=== PATIENT | male | born 1975 | race Caucasian/White ===

== ENCOUNTER 2018-05-05 13:52 | Emergency (ER) | payer OTHER ==
[~2018-05-05] VITALS: Ht 167.6 cm; Wt 104.3 kg
[2018-05-05 14:50] LABS: BASO # 0.1 x10^3/uL (0.0-0.2); BASO % 3 % (0-3); EOS # 0.2 x10^3/uL (0.0-0.7); EOS % 5 % (0-3); HEMATOCRIT 39.6 % (39.0-53.0); HEMOGLOBIN 14.2 g/dL (13.0-17.5); LYMPH # 1.5 x10^3/uL (1.0-4.8); LYMPH % 36 % (24-48); MEAN CORPUSCULAR HEMOGLOBIN 31 pg (25-35); MEAN CORPUSCULAR HGB CONC 36 g/dL (31-37); MEAN CORPUSCULAR VOLUME 85 fL (79-100); MONO # 0.6 x10^3/uL (0.0-1.1); MONO % 14 % (0-9); NEUT # 1.8 x10^3uL (1.8-7.7); NEUT % 42 % (31-73); PLATELET COUNT 193 x10^3/uL (140-400); RED BLOOD COUNT 4.64 x10^6/uL (4.30-5.70); RED CELL DISTRIBUTION WIDTH 13.1 % (11.5-14.5); WHITE BLOOD COUNT 4.2 x10^3/uL (4.0-11.0)
--- NOTE | 2018-05-05 14:56 | PHYS DOC ---
Past Medical History Past Medical History: Other Additional Past Medical Histor: PITUATARY GLAND TUMOR Past Surgical History: No Surgical History Additional Information: 1 PPD Alcohol Use: None Drug Use: None Adult General Chief Complaint Chief Complaint: HEADACHE HPI HPI Patient is a 42 year old male who presents with headache. Patient has been having a bitemporal frontal headache over the last 3 days. He states he has been having headaches over the last many weeks. He was recently evaluated in [place] and referred to an frame opener due to some complaints of vision loss. He primarily complains of vision loss on the peripheral vision bilaterally. The frame opener had concerns that the patient might have a pituitary tumor due to the vision loss. The patient was supposed to follow-up with a neurosurgeon and have MRI of his brain but states he encountered an insurance issue and was unable to follow-up. Today, he primarily complains of headache that has been worsening. He has no vision changes other than those mentioned. He has no nausea or vomiting. He has mild photophobia. He denies other focal neurologic complaints. Review of Systems Review of Systems Constitutional: Denies fever or chills Eyes: as documented above HENT: Denies nasal congestion Respiratory: Denies cough or shortness of breath Cardiovascular: No additional information not addressed in HPI GI: Denies abdominal pain : Denies dysuria or hematuria Musculoskeletal: Denies back pain or joint pain Integument: Denies rash Neurologic: Denies focal neuro complaints All other systems were reviewed and found to be within normal limits, except as documented in this note. Current Medications Current Medications Current Medications Medications (Trade) Dose Ordered Sig/Esha Start Time Stop Time Status Last Admin Dose Admin Ketorolac Tromethamine (Toradol 30mg Vial) 30 mg 1X ONCE 05/05/18 15:00 05/05/18 15:01 DC 05/05/18 14:44 30 MG Prochlorperazine Edisylate (Compazine) 10 mg 1X ONCE 05/05/18 15:00 05/05/18 15:01 DC 05/05/18 14:44 10 MG Allergies Allergies Allergies Coded Allergies Type Severity Reaction Last Updated Verified No Known Drug Allergies 05/05/18 No Physical Exam Physical Exam Constitutional: Well developed, well nourished, no acute distress, non-toxic appearance HENT: Normocephalic, atraumatic, bilateral external ears normal, oropharynx moist Eyes: PERRLA, EOMI, conjunctiva normal, no discharge Neck: Normal range of motion, no tenderness, supple Cardiovascular:Heart rate regular rhythm, no murmur Lungs & Thorax: Bilateral breath sounds clear to auscultation Abdomen: Bowel sounds normal, soft, no tenderness Skin: Warm, dry, no erythema, no rash Extremities: No tenderness, no edema Neurologic: Alert and oriented X 3, cranial nerves II through XII are intact bilaterally. Patient does have bitemporal loss of some peripheral vision. 5 over 5 motor strength globally. 2 over 4 deep tendon reflexes globally. Psychologic: Affect normal, judgement normal, mood normal Current Patient Data Vital Signs Vital Signs Date Time Temp Pulse Resp B/P (MAP) Pulse Ox O2 Delivery O2 Flow Rate FiO2 05/05/18 14:11 98.0 104 17 144/98 (113) 98 Room Air 98.0 Lab Values Laboratory Tests Test 05/05/18 14:34 White Blood Count 4.2 x10^3/uL (4.0-11.0) Red Blood Count 4.64 x10^6/uL (4.30-5.70) Hemoglobin 14.2 g/dL (13.0-17.5) Hematocrit 39.6 % (39.0-53.0) Mean Corpuscular Volume 85 fL (79-100) Mean Corpuscular Hemoglobin 31 pg (25-35) Mean Corpuscular Hemoglobin Concent 36 g/dL (31-37) Red Cell Distribution Width 13.1 % (11.5-14.5) Platelet Count 193 x10^3/uL (140-400) Neutrophils (%) (Auto) 42 % (31-73) Lymphocytes (%) (Auto) 36 % (24-48) Monocytes (%) (Auto) 14 % (0-9) H Eosinophils (%) (Auto) 5 % (0-3) H Basophils (%) (Auto) 3 % (0-3) Neutrophils # (Auto) 1.8 x10^3uL (1.8-7.7) Lymphocytes # (Auto) 1.5 x10^3/uL (1.0-4.8) Monocytes # (Auto) 0.6 x10^3/uL (0.0-1.1) Eosinophils # (Auto) 0.2 x10^3/uL (0.0-0.7) Basophils # (Auto) 0.1 x10^3/uL (0.0-0.2) Sodium Level 139 mmol/L (136-145) Potassium Level 3.7 mmol/L (3.5-5.1) Chloride Level 101 mmol/L (98-107) Carbon Dioxide Level 29 mmol/L (21-32) Anion Gap 9 (6-14) Blood Urea Nitrogen 9 mg/dL (8-26) Creatinine 1.1 mg/dL (0.7-1.3) Estimated GFR (Cockcroft-Gault) 74.1 Glucose Level 86 mg/dL (70-99) Calcium Level 9.3 mg/dL (8.5-10.1) Laboratory Tests 05/05/18 14:34 Laboratory Tests 05/05/18 14:34 EKG EKG [] Radiology/Procedures Radiology/Procedures [] Course & Med Decision Making Course & Med Decision Making Pertinent Labs and Imaging studies reviewed. (See chart for details) 14:20: Patient is seen and examined. His neurologic exam is nonfocal other than some vision loss. CT scan is ordered. Compazine and Toradol. 15:10: Patient demands to have IV removed and hemostasis sign out of the emergency department. He does seem more anxious compared to arrival. It was explained to the patient that this could be a side effect of the Compazine he was given for his headache. His headache is improved but he does not wish to stay for any additional workup including CT scan. Patient was discharged AGAINST MEDICAL ADVICE per nursing staff. Dragon Disclaimer Dragon Disclaimer This electronic medical record was generated, in whole or in part, using a voice recognition dictation system. Departure Departure Disposition: 07 AGAINST MEDICAL ADVICE Condition: STABLE Referrals: NO PCP (PCP) BUD CHAUDHRY DO May 05, 2018 14:56
[2018-05-05 14:59] LABS: CALCIUM 9.3 mg/dL (8.5-10.1); CREATININE 1.1 mg/dL (0.7-1.3); GFR 74.1; POTASSIUM 3.7 mmol/L (3.5-5.1)
[2018-05-05] MEDS ORDERED: KETOROLAC 30 MG/ML VIAL. IV ONE (15:00)
[2018-05-05] MEDS ORDERED: PROCHLORPERAZINE 10 MG/2 ML VIAL. IV ONE (15:00)
[2018-05-05 15:01] VITALS: BP 145/95
== END 2018-05-05 15:09 | disposition left against medical advice (07) ==
LOC: ER 13:52
DX: R51 Headache (principal)
CPT/HCPCS: 36415; 80048; 84146; 85025; 96374; 96375; 99283; J0780; J1885

== ENCOUNTER 2018-05-06 09:39 | Emergency (ER) | payer OTHER ==
[~2018-05-06] VITALS: Ht 167.6 cm; Wt 104.3 kg
--- NOTE | 2018-05-06 09:58 | PHYS DOC ---
Past Medical History Past Medical History: No Pertinent History, Other Past Surgical History: No Surgical History Alcohol Use: None Drug Use: None Adult General Chief Complaint Chief Complaint: VISION PROBLEM HPI HPI Patient is a 42-year-old male who presents to the emergency department for evaluation. He states for the past 3 months so he has been having some vision problems, primarily with visual field loss in his bitemporal upper visual valdovinos. He saw an clinical program manager about 3 weeks ago who suspected that the patient might have a pituitary tumor. He was referred to a neurosurgeon for imaging, but he states that the surgeon did not accept his insurance and he was not able to be seen. He presented to the emergency department yesterday, but left prior imaging. His note from yesterday has been reviewed. He returns to the emergency department today for further evaluation stating "I just want to get it taken care of". He currently denies any pain. He has not had any ocular pain, and denies any headache. He has not had any numbness or weakness. There are no alleviating or exacerbating factors to his symptoms. Review of Systems Review of Systems Constitutional: Denies fever or chills [] Eyes: Denies eye redness, or eye pain [] HENT: Denies nasal congestion or sore throat [] Respiratory: Denies cough or shortness of breath [] Cardiovascular: The patient denies any shortness of breath, chest pain, palpitations, or orthopnea [] GI: Denies abdominal pain, nausea, vomiting, bloody stools or diarrhea [] : Denies dysuria or hematuria [] Musculoskeletal: Denies back pain or joint pain [] Integument: Denies rash or skin lesions [] Neurologic: Denies headache, focal weakness or sensory changes [] Endocrine: Denies polyuria or polydipsia [] All other systems were reviewed and found to be within normal limits, except as documented in this note. Allergies Allergies Allergies Coded Allergies Type Severity Reaction Last Updated Verified No Known Drug Allergies 05/05/18 No Physical Exam Physical Exam PHYSICAL EXAM: CONSTITUTIONAL: Well developed, well nourished HEAD: normocephalic, atraumatic EENT: PERRL, EOMI. Conjunctivae normal color, there appears to be some visual field deficit in the upper visual valdovinos bitemporally, otherwise visual valdovinos are intact by confrontation, sclerae non-icteric; moist mucous membranes. NECK: Supple, non-tender; no meningismus. LUNGS: Lungs CTA, breathing even and unlabored. Normal air movement. HEART: Regular rate and rhythm, no murmur CHEST: No deformity; non-tender ABDOMEN: The abdomen is soft, and non-tender, no masses or bruits. EXTREM: Normal ROM; no deformity, no calf tenderness. Normal pulses palpable in all extremities. There is no pedal edema. SKIN: No rash; no diaphoresis NEURO: Alert; normal speech and cognition; CN's grossly intact; strength grossly intact without focal deficit. BACK: No CVA TTP. Current Patient Data Vital Signs Vital Signs Date Time Temp Pulse Resp B/P (MAP) Pulse Ox O2 Delivery O2 Flow Rate FiO2 05/06/18 09:39 97.4 97 18 146/97 (113) 99 Room Air 97.4 EKG EKG [] Radiology/Procedures Radiology/Procedures [PROCEDURE: CT HEAD WO CONTRAST PQRS Compliance Statement: One or more of the following individualized dose reduction techniques were utilized for this examination: 1. Automated exposure control 2. Adjustment of the mA and/or kV according to patient size 3. Use of iterative reconstruction technique CT head without contrast 05/06/2018 9:52 AM INDICATION: Bitemporal vision loss. COMPARISON: None available TECHNIQUE: Multiple axial CT images of the head were obtained from skull base through the vertex without intravenous contrast. FINDINGS: Head: Ventricles, sulci and basal cisterns are within normal limits. There is a 3.7 x 2.8 x 2.6 cm sellar based mass. There is likely extension of the right cavernous sinus with erosion of the posterior dorsum sella. There is extension into the right sphenoid sinus. There is mass effect on optic chiasm. There is no hydrocephalus. Michaels-white matter differentiation is normal. There is no acute intracranial hemorrhage. Posterior fossa is normal in appearance. Visualized portions of the orbits are normal. Paranasal sinuses are well aerated. Mastoid air cells are well aerated. Scalp and calvaria are normal. IMPRESSION: 3.7 x 2.8 x 2.6 cm sellar based mass which most favors a pituitary macroadenoma. Differential considerations would include meningioma, craniopharyngioma and alternate pituitary neoplasms. There is mass effect on the optic chiasm and suprasellar extension. There is likely invasion the right cavernous sinus. There is extension inferiorly to the right sphenoid sinus. Correlate with rhinorrhea.] Course & Med Decision Making Course & Med Decision Making Pertinent Imaging studies reviewed. (See chart for details) [11:15 AM: The patient's condition remains stable. I discussed the case with neurosurgery, Dr. Chopra. He states that the patient likely need surgery, and because of his vision changes, this should be done sooner rather than later and he states that this is not a surgery that he performs and recommended transferring the patient to different facility. The patient is agreeable to transfer and the transfer center has been contacted.] 1:30 PM: After significant delay, I was able to get a hold of the neurosurgeon at , Dr. Wilda Garcia, who accepted the patient in transfer. Dragon Disclaimer Dragon Disclaimer This electronic medical record was generated, in whole or in part, using a voice recognition dictation system. Departure Departure Impression: Primary Impression: Pituitary adenoma Additional Impression: Visual field loss Disposition: 02 TRANSFER [facility] Condition: STABLE Referrals: ROSAURA MACHUCA MD (PCP) Problem Qualifiers CHRIS HOWARD MD May 06, 2018 09:58
--- NOTE | 2018-05-06 10:53 | RAD ---
RS Compliance Statement: One or more of the following individualized dose reduction techniques were utilized for this examination: 1. Automated exposure control 2. Adjustment of the mA and/or kV according to patient size 3. Use of iterative reconstruction technique CT head without contrast 05/06/2018 9:52 AM INDICATION: Bitemporal vision loss. COMPARISON: None available TECHNIQUE: Multiple axial CT images of the head were obtained from skull base through the vertex without intravenous contrast. FINDINGS: Head: Ventricles, sulci and basal cisterns are within normal limits. There is a 3.7 x 2.8 x 2.6 cm sellar based mass. There is likely extension of the right cavernous sinus with erosion of the posterior dorsum sella. There is extension into the right sphenoid sinus. There is mass effect on optic chiasm. There is no hydrocephalus. Michaels-white matter differentiation is normal. There is no acute intracranial hemorrhage. Posterior fossa is normal in appearance. Visualized portions of the orbits are normal. Paranasal sinuses are well aerated. Mastoid air cells are well aerated. Scalp and calvaria are normal. IMPRESSION: 3.7 x 2.8 x 2.6 cm sellar based mass which most favors a pituitary macroadenoma. Differential considerations would include meningioma, craniopharyngioma and alternate pituitary neoplasms. There is mass effect on the optic chiasm and suprasellar extension. There is likely invasion the right cavernous sinus. There is extension inferiorly to the right sphenoid sinus. Correlate with rhinorrhea. Electronically signed by: Marleni Bryant MD (05/06/2018 10:49 AM) [id number]
[2018-05-06 13:08] VITALS: BP 147/97
== END 2018-05-06 14:39 | disposition short-term general hospital (02) ==
LOC: ER 09:39
DX: D35.2 Benign neoplasm of pituitary gland (principal); H54.7 Unspecified visual loss
CPT/HCPCS: 70450; 99284; 99285